=== PATIENT | female | born 1960 | race Caucasian/White ===

== ENCOUNTER 2022-07-17 13:09 | Outpatient (CLI) | payer OTHER, SELFPAY ==
--- NOTE | 2022-07-17 13:40 | CRLHL7_ITS ---
For Patients: As a result of the Cures Act, medical imaging exams and procedure reports are released immediately into your electronic medical record. You may view this report before your referring provider. If you have questions, please contact your health care provider. BILATERAL SCREENING MAMMOGRAM WITH COMPUTER-AIDED DETECTION AND TOMOSYNTHESIS TECHNIQUE: CC and MLO views were obtained. These mammographic images have been obtained using full-field digital technique. These mammographic images were interpreted with the benefit of computer-aided detection. Breast Tomosynthesis was used in this interpretation. COMPARISON FILM: 07/12/21, 06/07/20, 08/05/18. FINDINGS: The breasts are extremely dense, which lowers the sensitivity of mammography IMPRESSION: There is no radiographic evidence for malignancy. ASSESSMENT: BI-RADS Category 2: Benign RECOMMENDATION: Routine screening mammogram in 1 year. A lay language report of this examination will be provided to the patient. Curry Gipson M.D. Diagnostic/Nuclear Medicine Radiologist [email or web address] Transcribed: 2:20 pm DW/Dictated by: Curry Gipson MD @ 07/18/2022 8:35:00 AM (Electronically Signed)
== END 2022-07-17 13:10 | disposition home or self-care (01) ==
LOC: MAMMO 13:10
PROVIDERS: PCP Family Medicine; Visit Provider Family Medicine
DX: Z12.31 Encounter for screening mammogram for malignant neoplasm of breast (principal); R92.2 Inconclusive mammogram
CPT/HCPCS: 77063; 77067

== ENCOUNTER 2023-07-30 09:36 | Outpatient (CLI) | payer OTHER, SELFPAY ==
--- NOTE | 2023-07-30 09:45 | CRLHL7_ITS ---
For Patients: As a result of the Century Cures Act, medical imaging exams and procedure reports are released immediately into your electronic medical record. You may view this report before your referring provider. If you have questions, please contact your health care provider. BILATERAL SCREENING MAMMOGRAM WITH COMPUTER-AIDED DETECTION AND TOMOSYNTHESIS TECHNIQUE: CC and MLO views were obtained. These mammographic images have been obtained using full-field digital technique. These mammographic images were interpreted with the benefit of computer-aided detection. Breast Tomosynthesis was used in this interpretation. COMPARISON FILM: 07/17/22, 07/12/21, 06/07/20. FINDINGS: The breasts are heterogeneously dense, which may obscure small masses IMPRESSION: There is no radiographic evidence for malignancy. ASSESSMENT: BI-RADS Category 2: Benign RECOMMENDATION: Routine screening mammogram in 1 year. A lay language report of this examination will be provided to the patient. Lion Molina M.D. Diagnostic Radiologist [email or web address] SHIRLEY/Dictated by: Lion Molina MD @ 07/30/2023 12:32:00 PM (Electronically Signed)
== END 2023-07-30 09:37 | disposition home or self-care (01) ==
PROVIDERS: PCP Family Medicine; Visit Provider Family Medicine
DX: Z12.31 Encounter for screening mammogram for malignant neoplasm of breast (principal); R92.2 Inconclusive mammogram
CPT/HCPCS: 77063; 77067

== ENCOUNTER 2024-06-29 06:06 | Day surgery (SDC) | payer MEDICARE, BC, SELFPAY ==
--- OUTSIDE RECORDS SUMMARY | 2024-06-29 06:11 | XMS_ITS | Clinical Summary ---
Author Organization [facility] Address [address] [place] [id number] Care Team Providers Care Environmental Services Associate Name Role Phone Unavailable Primary Care Provider Unavailabl e Source Comments Patient records contain information from all sites at [facility]. For routine questions regarding patient records, call [phone] during business hours, M-F 8:00 AM - 5:00 PM Central Time. Record requests for emergency care only can be directed to [phone] at any time.[facility] Allergies Active Allergy Reactions Criticality Noted Date Comments Clindamycin Rash 02/17/2007 Nickel Rash 07/03/2016 Medications acebutolol (SECTRAL) 200 mg capsule Take 200 mg by mouth. 9 Active levothyroxine (SYNTHROID, LEVOTHROID) 25 mcg tablet 4 9 Active fluticasone propion-salmete roL 500-50 mcg/dose diskus inhaler Inhale 1 puff as needed. 9 Active omega 2-alw-ezb-fish oil 1,200 (144-216) mg capsule Active multivitamin-Ca -iron-minerals (Multiple Vitamin, Womens) tablet Daily Activ e cholecalciferol , vitamin D3, (cholecalcifero l) 25 mcg (1,000 Unit) tablet Take 2 tablets (50 mcg total) by mouth daily. 180 tablet 3 2 Active HYDROcodone-darwin taminophen (NORCO) 5-325 mg per tabletIndicatio ns:Acute Pain Take 1 tablet by mouth every 4 (four) hours as needed for pain Indication: Acute Pain. 10 tablet 4 Active estradioL (Vivelle-Dot) 0.025 mg/[address] 1 patch on the skin 2 (two) times a week. 24 patch 3 4 Active progesterone (Prometrium) 100 mg capsule Take 1 capsule (100 mg total) by mouth at bedtime. 90 capsule 3 4 Active estradioL (Vivelle-Dot) 0.025 mg/[address] 1 patch on the skin 2 (two) times a week. 24 patch 3 4 06/03/20 24 Discontinu ed(Reorder ) progesterone (PROMETRIUM) 100 mg capsule Take 1 capsule (100 mg total) by mouth at bedtime. 90 capsule 3 4 06/03/20 24 Discontinu ed(Reorder ) Active Problems Problem Noted Date Diagnosed Date Preventive Gynecological Exam 09/22/2020 Overview (08/27/2023): Mammogram is up to date. Will plan to repeat Pap smear next year. Colonoscopy is up to date. Calcium intake is adequate. Discussed the importance of weight bearing exercises for bone health. Otherwise follows up for preventative services with primary care. Status Post Menopausal 08/07/2018 Overview (08/27/2023): With symptomatic when last tried off medication. Dropping dose to 0.025 transdermal estradiol change twice weekly and 100 mg of Prometrium daily. Samples of Uber lube for vaginal dryness given. Asthma NOS 06/08/2011 Overview (11/13/2016): Asthma, Unspecified Resolved Problems Problem Noted Date Diagnosed Date Resolved Date Bleeding Postmenopausal 08/07/2018 03/0 10/2023 Encounters Date Type Department Care Team Description 06/03/2024 Refill Department of Obstetrics and Gynecology in [place], [place] [address] [id number] Sandro Hood Jr., M.D. Med Refill from Last 3 Months Immunizations Name Administration Dates Next Due HepA Adult 08/03/2005 Influenza, Unspecified 04/07/2011 SARS-COV-2 (COVID-19) - PFIZ ER (Discontinued)(12 years or older) 07/05/2020,06/15/2020 SARS-COV-2 (COVID-19) - PFIZ ER BIVALENT TS(Discontinued)(12 YEARS OR OLDER) 03/31/2022 Tdap 12/06/2008 YF 08/03/2005 Family History Medical History Relation Name Comments Testicular cancer Brother Heart attack Father Coronary artery disease Mother Hypertension Mother Brain cancer Sister Relation Name Status Comments Brother Father Mother Sister Social History Tobacco Use Types Packs/Day Years Used Date Smoking Tobacco: Never Smokeless Tobacco: Never Tobacco Cessation:Counseling Given: Not Answered Humiliation, Afraid, Rape, and Kick questionnair e Answer Date Recorded Within the last year, have y ou been afraid of your partner or ex-partner? No 09/26/2021 Within the last year, have y ou been humiliated or emotionally abused in other ways by your partner or ex-partner? No Within the last year, have y ou been kicked, hit, slapped, or otherwise physically hurt by your partner or ex-partner? No 09/26/2021 Within the last year, have y ou been raped or forced to have any kind of sexual activity by your partner or ex-partner? No 09/26/2021 Social Connection and Isolat ion Panel [NHANES] Answer Date Recorded In a typical week, how many times do you talk on the phone with family, friends, or neighbors? More than three times a week 09/26/2021 How often do you get togethe r with friends or relatives? More than three times a week 09/26/2021 How often do you attend chur ch or hindu services? More than 4 times per year 09/26/2021 Do you belong to any clubs o r organizations such as pentecostalism groups, unions, fraternal or athletic groups, or school groups? Yes 09/26/2021 How often do you attend meet ings of the clubs or organizations you belong to? Never 09/26/2021 Are you , , di vorced, , never , or living with a partner? 09/26/2021 AUDIT-C Answer Date Recorded Q1: How often do you have a drink containing alcohol? 4 or more times a week 09/26/2021 Q2: How many drinks containi ng alcohol do you have on a typical day when you are drinking? 1 or 2 Q3: How often do you have si x or more drinks on one occasion? Never 09/26/2021 Overall Financial Resource Strain (CARDIA) Answe r Date Recorded How hard is it for you to pa y for the very basics like food, housing, medical care, and heating? Not hard at all 09/26/2021 PHQ-2 Answer Date Recorded PHQ-2 Score 0 08/27/2023 [facility] - Occupational Stress Questionnaire Answer Date Recorded Do you feel stress - tense, restless, nervous, or anxious, or unable to sleep at night because your mind is troubled all the time - these days? Only a little 09/26/2021 Exercise Vital Sign Answer Date Recorde d On average, how many days pe r week do you engage in moderate to strenuous exercise (like a brisk walk)? 5 days 09/26/2021 On average, how many minutes do you engage in exercise at this level? 60 min 09/26/2021 Hunger Vital Sign Answer Date Recorded Within the past 12 months, y ou worried that your food would run out before you got the money to buy more. Never true 09/27/19 22 Within the past 12 months, t he food you bought just didn't last and you didn't have money to get more. Never true 09/26/2021 PRAPARE - Transportation Answer Date Re corded In the past 12 months, has l ack of transportation kept you from medical appointments or from getting medications? No 10/2021 In the past 12 months, has l ack of transportation kept you from meetings, work, or from getting things needed for daily living? No 09/26/2021 Housing Stability Vital Sign Answer Juni e Recorded In the last 12 months, was t here a time when you were not able to pay the mortgage or rent on time? No 09/26/2021 In the last 12 months, how many places have you lived? 1 09/26/2021 In the last 12 months, was t here a time when you did not have a steady place to sleep or slept in a custodial (including now)? No 09/26/2021 Nutrition Answer Date Recorded Nutrition: EVOO Fat Source Yes 09/26 On average, how many serving s of fruits and vegetables do you eat per day (serving size is equal to 1 cup or approximately the size of a tennis ball)? 4-5 09/26/2021 Dental Answer Date Recorded Dental: Regular Dentist Yes 09/27/19 Employment Answer Date Recorded Employment status Retired 09/26/2021 Education Answer Date Recorded What is the highest level of school you have completed or the highest degree you have received? 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 Gender Identity Female 09/26/2021 9:45 AM CDT Sexual Orientation Straight 09/26/2021 9: 45 AM CDT Last Filed Vital Signs Vital Sign Reading Time Taken Comments Blood Pressure 117/73 08/27/2023 1:47 PM LINK FABRIC MACHINE OPERATOR Pulse 67 08/27/2023 1:47 PM LINK FABRIC MACHINE OPERATOR Temperature - - Respiratory Rate 18 09/22/2020 8:54 AM CDT Oxygen Saturation - - Inhaled Oxygen Concentration - - Weight 56.1 kg (123 lb 10.9 oz) 08/27/2023 1:47 PM LINK FABRIC MACHINE OPERATOR Height 160 cm (5' 2.99) 08/27/2023 1:47 PM LINK FABRIC MACHINE OPERATOR Body Mass Index 21.91 08/27/2023 1:47 PM LINK FABRIC MACHINE OPERATOR Plan of Treatment Health Maintenance Due Date Last Done Comments CT Colonography 1960 Cologuard 1960 FIT 1960 HIV Screening 1960 Hepatitis C Screening 1960 Hepatitis A Vaccines (2 of 2 - Risk 2-dose series) 01/31/2006 08/03/2005 Mammogram 08/05/2019 08/05/2018 (Perf ormed elsewhere), 08/19/2012 (Performed elsewhere) Fall Risk Screen (Annual) 11/01/2023 COVID-19 Vaccine ( season) 2024 04/10/2023, 03/31/2022, 11/01/2021, Additional history exists Influenza Vaccine (#1) 2024 , 03/31/2022, 03/21/2021, Additional history exists Thyroid Stimulating Hormone (TSH) test for thyroid function 02/05/2025 02/06/2024, 11/27/2023, 08/28/2023, Additional history exists Cervical/Vaginal Cancer Screening 09/27/2026 09/27/2021, 09/27/2021, 08/07/2018, Additional history exists Fasting Glucose for Diabetes Screening 02/05/2027 02/06/2024, 08/28/2023, 07/25/2022, Additional history exists Colonoscopy 07/15/2030 07/15/2020, 04/03/2010 Colorectal Cancer Screening 07/15/2030 DTaP,Tdap,and Td Vaccines (5 - Td or Tdap) 07/24/2032 07/24/2022, 03/17/2012, 10/04/2009, Additional history exists Zoster Vaccines Completed 12/18/2019, 08/26/2019 Pneumococcal vaccine (50+ years) Completed 07/20/2022 Depression Screening (Annual PHQ-2) Completed 08/27/2023 IPV Vaccines Aged Out No longer eligi ble based on patient's age to complete this topic Procedures Procedure Name Priority Date/Time Associated Diagnosis Comments HPV WITH GENOTYPING, PCR, THINPREP Routine 09/27/2021 9:52 AM CDT from Last 3 Months or Most Recently Relevant to Health Maintenance Results * HPV with Genotyping, PCR, ThinPrep (09/27/2021 9:52 AM CDT) HPV with Genotyping, ThinPrep, PCR Negative Negative 09/28/2021 3:45 PM CDT MKTO Comment: Negative for high risk HPV by nucleic acid amplification. The following high risk HPV types were not detected: 16, 18, 31, 33, 35, 39, 45, 51, 52, 56, 58, 59, 66, and 68 Varies 09/27/2021 9:52 AM CDT 09/28/2021 8:34 AM CDT us Sandro Hood Jr., M.D. LAB MICROBIOLOGY - GEN ERAL ORDERABLES Final Result [facility] [address] [place] [address], [facility] MKTO [facility] [place] [address] [place] [address] from Last 3 Months or Most Recently Relevant to Health Maintenance [place] [id number]
--- OUTSIDE RECORDS SUMMARY | 2024-06-29 06:11 | XMS_ITS | Referral Summary ---
Author Organization [facility] Address [address] [place] [address] Care Team Providers Care Delivery Truck Driver Heavy Name Role Phone Unavailable Primary Care Provider Unavailabl e Source Comments Patient records contain information from all sites at [facility]. For routine questions regarding patient records, call [phone] during business hours, M-F 8:00 AM - 5:00 PM Central Time. Record requests for emergency care only can be directed to [phone] at any time.[facility] Encounters Date Type Department Care Team Description 06/03/2024 Refill Department of Obstetrics and Gynecology in [place], [place] [address] [place] [phone] Sandro Hood Jr., M.D. Med Refill from Last 3 Months Allergies Active Allergy Reactions Criticality Noted Date Comments Clindamycin Rash 02/17/2007 Nickel Rash 07/03/2016 Medications acebutolol (SECTRAL) 200 mg capsule Take 200 mg by mouth. 9 Active levothyroxine (SYNTHROID, LEVOTHROID) 25 mcg tablet 4 9 Active fluticasone propion-salmete roL 500-50 mcg/dose diskus inhaler Inhale 1 puff as needed. 9 Active omega 9-wex-gib-fish oil 1,200 (144-216) mg capsule Active multivitamin-Ca [...] Resolved Date Bleeding Postmenopausal 08/07/2018 03/0 10/2023 Immunizations Name Administration Dates Next Due HepA Adult 08/03/2005 Influenza, Unspecified 04/07/2011 SARS-COV-2 (COVID-19) - PFIZ ER (Discontinued)(12 years or older) 07/05/2020,06/15/2020 SARS-COV-2 (COVID-19) - PFIZ ER BIVALENT TS(Discontinued)(12 YEARS OR OLDER) 03/31/2022 Tdap 12/06/2008 YF 08/03/2005 Social History Tobacco Use Types Packs/Day Years [...] 09/26/2021 How often do you attend chur or sabianism services? More than 4 times per year 09/26/2021 Do you belong to any clubs o r organizations such as judaism groups, unions, fraternal or athletic groups, or [...] Answer Date Recorded PHQ-2 Score 0 08/27/2023 [facility] - Occupational Stress [...] place to sleep or slept in a penitentiary (including now)? 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 Gender Identity Female 09/26/2021 9:45 AM CDT Sexual Orientation Straight 09/26/2021 9: 45 AM CDT Last Filed Vital Signs Vital Sign Reading Time Taken Comments Blood Pressure 117/73 08/27/2023 1:47 PM TREASURY DIRECTOR Pulse 67 08/27/2023 1:47 PM TREASURY DIRECTOR Temperature - - Respiratory Rate 18 09/22/2020 8:54 AM CDT Oxygen Saturation - - Inhaled Oxygen Concentration - - Weight 56.1 kg (123 lb 10.9 oz) 08/27/2023 1:47 PM TREASURY DIRECTOR Height 160 cm (5' 2.99) 08/27/2023 1:47 PM TREASURY DIRECTOR Body Mass Index 21.91 08/27/2023 1:47 PM TREASURY DIRECTOR Plan of Treatment Not on file Procedures Procedure Name Priority Date/Time Associated Diagnosis [...] 9:52 AM CDT 09/28/2021 8:34 AM CDT Sandro Hood Jr., M.D. LAB MICROBIOLOGY - GEN ERAL ORDERABLES Final Result [facility] [address] [place] [address], [facility] MKTO [facility] in [place] [address] [place] [address] from Last 3 Months or Most Recently Relevant to Health Maintenance Insurance MEDICA
--- OUTSIDE RECORDS SUMMARY | 2024-06-29 06:11 | XMS_ITS | Clinical Summary ---
Author Organization [facility] Address [place], [place] [address] Care Team Providers Care Yarn Texture Machine Operator Name Role Phone Kamille Cespedes MD Primary Care Prov ider Allergies Active Allergy Reactions Criticality Noted Date Comments Clindamycin Rash 02/17/2007 Nickel Contact Dermatitis 07/03/2016 Medications multivitamin (MVI) tablet Take 1 tablet by mouth once daily. 0 5 Active cholecalciferol, Vitamin D3, (Vitamin D-3) 2,000 unit tablet Take 1 Tablet (2,000 units) by mouth once daily. 3 Active estradiol 0.025 mg/24 hr (CLIMARA) 0.025 mg/24 hr patch Apply 1 Patch on dry, clean, hairless skin once weekly. 4 Active progesterone micronized (PROMETRIUM) 100 mg capsule Take 1 Capsule (100 mg) by mouth. This product contains peanut oil. Please verify patient allergies. 4 Active Advair Diskus 500-50 mcg/dose diskus inhalerIndicatio ns:Asthma, unspecified asthma severity, unspecified whether complicated, unspecified whether persistent Inhale 1 Puff by mouth two times daily. NEEDED HOLD until patient calls 1 Each 11 4 Active bisoprolol (ZEBETA) 5 mg tabletIndication s:SVT (supraventricula r tachycardia) (HC) Take 0.5 Tablets (2.5 mg) by mouth once daily. 30 Tablet 3 4 Active levothyroxine (SYNTHROID) 50 mcg tabletIndication s:Hypothyroidism , unspecified type Take 1 Tablet (50 mcg) by mouth once daily. Dose increase 11/27/2023 90 Tablet 1 4 Active oxyCODONE (ROXICODONE) 5 mg immediate release tabletIndication s:Tailor's bunionette, left Take 1-2 Tablets (5-10 mg) by mouth every 4 hours if needed for Pain. 20 Tablet 5 Active Active Problems Problem Noted Date Diagnosed Date Screening for osteoporosis 07/30/2022 Overview (07/30/2022): IMPRESSION: Normal bone density. Repeat scan recommended in 3-5 years. Hypothyroidism 04/22/2014 Hyperplastic colon polyp 04/06/2010 Overview (04/06/2010): Colonoscopy 03/2010 Polyp repeat in 10 years Symptomatic menopausal or female climacteric sta anitha 05/08/2007 Unspecified asthma(493.90) 05/08/2007 Mitral valve disorders 05/08/2007 Allergic rhinitis, cause unspecified 05/08/2007 Migraines Resolved Problems Problem Noted Date Diagnosed Date Resolved Date Adjustment disorder with anxiety 03/31/2010 06/15/2021 Encounters Date Type Department Care Team Description 06/15/2024 7:15 AM BONDERIZER OPERATOR Ancillary Procedure [facility] [address] [place] [address] 06/14/2024 Travel 06/02/2024 7:00 AM BONDERIZER OPERATOR Preop Visit [facility] [address] [place] [place] [address] Kamille Cespedes MD Preoperative Exam (DOS 06/29/24 /Left foot zander booker /Dr Mckinney [facility]/) 06/01/2024 Travel 04/16/2024 9:15 AM CDT Office Visit [facility] [place] [address] [facility] [place] [phone] Ney Mckinney, DPM Follow Up (Left foot, tailor's bunion) 04/16/2024 Travel from Last 3 Months Immunizations Name Administration Dates Next Due AMB INFLUENZA, IIV4 (AGE=>6M OS) MDV (Flu Clinic Only) 03/27/2018 COVID-19 vaccine ([employer]-Bio NTech 30mcg/0.3mL) 12YO+ BIVALENT PF, MDV 03/31/2022 COVID-19 vaccine (Pfizer-Bio NTech 30mcg/0.3mL) PF, MDV 07/05/2020,06/15/2020 Hepatitis A (Adult) 08/03/2005 Influenza A (H1N1), Inactiva jay (Age >=3 Years) 05/26/2009 Influenza Intradermal PF 18-64 yrs 04/21/2014 Influenza RIV4 (Age 18+ Year s) PRESERV FREE 03/25/2019 Influenza Virus, Unspecified 04/07/2011 Influenza, IIV3 (Age 6-35 mos) 8,04/07/2013,03/17/2012,2010,03/27/2010 Influenza, IIV4 04/10/2023, 0,04/10/2017,2015,03/30/2015 Influenza, IIV4 (=>6mos) MDV 03/21/2021 Influenza,CCIIV4 PRESERV FREE 03/31/2022 Pneumococcal Conj 20-valent (Prevnar 20) 07/20/2022 Tdap 07/24/2022, 2,10/04/2009,2008 Yellow Fever 08/03/2005 Zoster (Shingrix-RZV, recombinant) 12/18/2019, Family History Medical History Relation Name Comments Cancer Brother 1 testicular Dementia Brother 2 Jeff Sean body Heart Disease Father PR, stents Hypertension Maternal Grandmother Hypertension Mother Heart Disease Paternal Grandfather deceas ed of heart attack Cancer Sister 1 brain malignant Cancer Sister 2 brain non-malig nant tumor Relation Name Status Comments Brother 1 Alive Brother 2 Jeff Alive Father Alive Maternal Grandmother Mother Alive Paternal Grandfather Sister 1 Alive Sister 2 Alive Social History Tobacco Use Types Packs/Day Years Used Date Smoking Tobacco: Never Smokeless Tobacco: Never Tobacco Cessation:Counseling Given: Yes Alcohol Use Standard Drinks/Week Comments Yes 4 (1 standard drink = 0.6 oz pur e alcohol) social [facility] Utilities Answer Date Recorded Do you have trouble paying f or utilities (for example, heat, electricity, water, phone)? Yes 09/01/2023 PHQ-2 Answer Date Recorded PHQ-2 TOTAL SCORE 0 12/17/2023 Social Connections Answer Date Recorded Do you often feel lonely or isolated from those around you? 0 09/01/2023 Financial Resource Strain Answer Date R ecorded Difficulty of Paying Living Expenses 3 09/01/2023 Difficulty of Paying Living Expenses Not on file 09/01/2023 Food Insecurity Answer Date Recorded Do you worry your food will run out before you are able to buy more? 1 09/01/2023 Transportation Needs Answer Date Record ed Does lack of transportation keep you from medica l appointments? 1 09/01/2023 Does lack of transportation keep you from work, meetings or getting things that you need? 1 09/01/2023 Housing Stability Answer Date Recorded What is your housing situation today? 1 09/01/2023 Comments No Sex and Gender Information Value Date Recorded Sex Assigned at Not on file Legal Sex Female 5:23 AM BONDERIZER OPERATOR Gender Identity Not on file Sexual Orientation Not on file Obstetrics History Last Filed Vital Signs Vital Sign Reading Time Taken Comments Blood Pressure 110/68 06/02/2024 7:02 AM BONDERIZER OPERATOR Pulse 60 06/02/2024 7:02 AM BONDERIZER OPERATOR Temperature 36.7 C (98 F) 06/02/2024 7:02 AM BONDERIZER OPERATOR Respiratory Rate 18 07/19/2020 11:49 AM BONDERIZER OPERATOR Oxygen Saturation 99% 06/02/2024 7:02 AM BONDERIZER OPERATOR Inhaled Oxygen Concentration - - Weight 57.2 kg (126 lb 3.2 oz) 06/02/2024 7:02 A M BONDERIZER OPERATOR Height 160.5 cm (5' 3.19) 06/02/2024 7:02 AM CS T Body Mass Index 22.22 06/02/2024 7:02 AM BONDERIZER OPERATOR Plan of Treatment Upcoming Encounters Date Type Department Care Team (Late st Contact Info) Description 06/29/2024 7:00 AM BONDERIZER OPERATOR Office Visit [facility] [address] [place] [phone] Ney Mckinney DPM [address] [place] [address] 07/01/2024 8:45 AM BONDERIZER OPERATOR Office Visit [facility] [address] [place] [address] Ney Mckinney DPM [address] [place] [address] 07/02/2024 11:05 AM BONDERIZER OPERATOR Office Visit [facility] [address] [place] [address] Kamille Cespedes MD [address] [place] [address] 07/08/2024 8:35 AM BONDERIZER OPERATOR Procedure Only [facility] [address] [place] [address] Tu La MD [address] [place] [address] 07/14/2024 1:15 PM BONDERIZER OPERATOR Office Visit [facility] [address] [place] [address] Ney Mckinney DPM [address] [place] [address] Health Maintenance Due Date Last Done Comments Pap test for age 21-65 11/06/2015 11/05/2012 RSV vaccine for adults or (1 - Risk 60-74 years 1-dose series) 2018 DEXA/DXA scan for age 65+ 11/01/20232022, 07/24/2022, 08/21/2012, Additional history exists Medicare Wellness for age 65+ 11/01/2023 Influenza for age 65+ 02/23/2024 04/10/2023 , 03/31/2022, 03/21/2021, Additional history exists Mammogram for age 45-75 07/30/2024 07/30/19 24, 07/12/2021, 06/07/2020, Additional history exists Depression screening for age 12+ 12/16/2024 12/17/2023, 07/25/2022, 07/24/2022, Additional history exists BMI (ht and wt on same day) for age 18+ 06/02/2025 06/02/2024, 07/24/2022, 06/15/2021, Additional history exists Lipids for age 45-75 08/27/2028 08/28/2023, 07/25/2022, 06/15/2021, Additional history exists Colonoscopy through age 75 07/15/203007/15, 07/15/2020, 04/06/2010, Additional history exists Tetanus booster 07/24/2032 07/24/2022, 02/23, 10/04/2009, Additional history exists HIV for age 15-65 Completed 06/24/1999 (Co mpleted outside of [place]) Hepatitis C screening for ag e 18-79 Completed 06/24/1999 (Completed outsid e of [place]) Zoster (shingles) series for age 50+ Completed 12/18/2019, 08/26/2019 Pneumococcal series for age 50+ Completed 3 Tdap Completed 07/24/2022, 02/23, 10/04/2009, Additional history exists COVID-19 vaccine series Completed 04/27/20, 04/10/2023, 03/31/2022, Additional history exists Procedures Procedure Name Priority Date/Time Associated Diagnosis Comments MR HIP RIGHT WO Routine 06/15/2024 7:18 AM BONDERIZER OPERATOR Tear of right gluteus medius tendon, sequela Buttock pain LIPID PANEL W REFLEX MEASURED LDL Routine 08/28/2023 8:15 AM BONDERIZER OPERATOR Screening for lipoid disorders SCAN-MAMMOGRAPHY REPORT 07/30/2023 12:00 AM BONDERIZER OPERATOR XR DXA BONE DENSITY 2 SITES AXIAL Routine 07/24/2022 2:38 PM BONDERIZER OPERATOR Screening for osteoporosis COLONOSCOPY 07/15/2020 11:09 AM BONDERIZER OPERATOR from Last 3 Months or Most Recently Relevant to Health Maintenance Results * MR HIP RIGHT WO (06/15/2024 7:18 AM BONDERIZER OPERATOR) Anatomical Region Laterality Modality HIPR Magnetic Resonan ce 06/15/2024 11:5 7 AM BONDERIZER OPERATOR Impressions 06/15/2024 11:57 AM BONDERIZER OPERATOR 1. No meaningful change. Tendinopathy and low-grade partial tearing right gluteus medius insertion. Scant trochanteric bursitis. Mild degenerative chondromalacia. 2. Levoscoliosis centered above the field of view. Dictated by Tu Barone MD @ 06/15/2024 11:57:18 AM (Electronically Signed) Narrative 06/15/2024 11:57 AM BONDERIZER OPERATOR For Patients: As a result of the Cures Act, medical imaging exams and procedure reports are released immediately into your electronic medical record. You may view this report before your referring provider. If you have questions, please contact your health care provider. EXAM: MRI OF THE RIGHT HIP, WITHOUT CONTRAST CLINICAL INDICATION: Hip pain. Assess gluteal tendons. PRIOR SURGERY: None. COMPARISON PLAIN FILMS: 17 December 2023 COMPARISON CROSS-SECTIONAL IMAGING STUDIES: MRI 03 February 2024 TECHNICAL: Axial, sagittal and coronal PDFS small field of view images of the hip. Coronal and axial T1 and PDFS large field of view images of the entire pelvis. 1.5 Ana MR scanner. FINDINGS: RIGHT HIP: Effusion: No significant joint effusion, synovial hypertrophy or synovitis. Articular Cartilage/Surfaces: Mildly heterogeneous T2 signal diffusely with shallow uniform grade 2 thinning. No secondary degenerative finding of significance. No significant change from comparison. Labrum: Normal. Joint Bodies: None seen. Proximal Femoral Morphology: No significant osseous bump. Femoral head-neck offset is within normal limits. Acetabular Morphology: No focal or global retroversion. No significant overcoverage. AVN: Not present. LEFT HIP: On the large field of view images of the entire pelvis, the contralateral hip joint is maintained. OSSEOUS STRUCTURES: Scoliosis to the left centered above the field of view. Mild disc desiccation and height loss L3-4. MUSCULOTENDINOUS STRUCTURES AND BURSAE: Mild edema surrounds the intact gluteus medius right hip. Intact gluteus minimus with small amount of fluid under the distal tendon and a small amount of fluid in the trochanteric bursa. Ischial femoral space is clear. Hamstring is intact. Left hamstring is intact. No fluid or edema at the left greater trochanter. INTRAPELVIC CONTENTS: No mass, fluid collection or adenopathy. No inguinal hernia. NEUROVASCULAR STRUCTURES: No abnormality involving the visualized sacral nerve roots or proximal femoral or proximal sciatic nerves. No aneurysmal dilation of the visualized arterial circulation. Procedure Note Tu Barone MD - 06/15/2024 For Patients: As a result of the Cures Act, medical imagingexams and procedure reports are released immediately into your electronicmedical record. You may view this report before your referring provider.If you have questions, please contact your health care provider. EXAM: MRI OF THE RIGHT HIP, WITHOUT CONTRAST CLINICAL INDICATION: Hip pain. Assess gluteal tendons. PRIOR SURGERY: None. COMPARISON PLAIN FILMS: 17 December 2023 COMPARISON CROSS-SECTIONAL IMAGING STUDIES: MRI 03 February 2024 TECHNICAL: Axial, sagittal and coronal PDFS small field of view images of the hip.Coronal and axial T1 and PDFS large field of view images of the entirepelvis. 1.5 Ana MR scanner. FINDINGS: RIGHT HIP: Effusion: No significant joint effusion, synovial hypertrophy orsynovitis. Articular Cartilage/Surfaces: Mildly heterogeneous T2 signal diffuselywith shallow uniform grade 2 thinning. No secondary degenerative findingof significance. No significant change from comparison. Labrum: Normal. Joint Bodies: None seen. Proximal Femoral Morphology: No significant osseous bump. Femoralhead-neck offset is within normal limits. Acetabular Morphology: No focal or global retroversion. No significantovercoverage. AVN: Not present. LEFT HIP: On the large field of view images of the entire pelvis, the contralateralhip joint is maintained. OSSEOUS STRUCTURES: Scoliosis to the left centered above the field of view. Mild discdesiccation and height loss L3-4. MUSCULOTENDINOUS STRUCTURES AND BURSAE: Mild edema surrounds the intact gluteus medius right hip. Intact gluteusminimus with small amount of fluid under the distal tendon and a smallamount of fluid in the trochanteric bursa. Ischial femoral space is clear.Hamstring is intact. Left hamstring is intact. No fluid or edema at theleft greater trochanter. INTRAPELVIC CONTENTS: No mass, fluid collection or adenopathy. No inguinal hernia. NEUROVASCULAR STRUCTURES: No abnormality involving the visualized sacral nerve roots or proximalfemoral or proximal sciatic nerves. No aneurysmal dilation of thevisualized arterial circulation. IMPRESSION: 1. No meaningful change. Tendinopathy and low-grade partial tearing rightgluteus medius insertion. Scant trochanteric bursitis. Mild degenerativechondromalacia. 2. Levoscoliosis centered above the field of view. Dictated by Tu Barone MD @ 06/15/2024 11:57:18 AM (Electronically Signed) us Carlos Moore MD MR Final Res ult * LIPID PANEL W REFLEX MEASURED LDL (08/28/2023 8:15 AM BONDERIZER OPERATOR) CHOLESTEROL,TOTAL 189 100 - 199 mg/dL 08/28/2023 2:32 PM BONDERIZER OPERATOR [facility] Comment: Cholesterol, Total Reference Ranges Desirable <200 mg/dL Borderline 200-239 mg/dL High >=240 mg/dL TRIGLYCERIDES 85 <150 mg/dL 08/28/2023 2:32 PM BONDERIZER OPERATOR [facility] HDL CHOLESTEROL 58 >40 mg/dL 2:32 PM BONDERIZER OPERATOR [facility] NON-HDL CHOLESTEROL 131 <145 mg/dl 08/28/2023 2:32 PM BONDERIZER OPERATOR [facility] CHOL/HDL RATIO 3.26 <4.50 08/28/2023 2:32 PM BONDERIZER OPERATOR [facility] LDL CHOLESTEROL 114 <=130 mg/dL 08/28/2023 2:32 PM BONDERIZER OPERATOR [facility] VLDL CHOLESTEROL 17 <=30 mg/dL 08/28/2023 2:32 PM BONDERIZER OPERATOR [facility] PROVIDER ORDERED STATUS RANDOM 08/28/2023 2:32 PM BONDERIZER OPERATOR [facility] Blood BLOOD SPECIMEN / Unknown Venipuncture / Unknown 08/28/2023 8:15 AM BONDERIZER OPERATOR 08/28/2023 8:15 AM BONDERIZER OPERATOR us Kamille Cespedes MD CHEMISTRY Fi nal Result [facility] [address] [place] [address], * SCAN-MAMMOGRAPHY REPORT (07/30/2023 12:00 AM BONDERIZER OPERATOR) Anatomical Region Laterality Modality Other us Scanner OTHER Final Result * XR DXA BONE DENSITY 2 SITES AXIAL (07/24/2022 2:38 PM BONDERIZER OPERATOR) Anatomical Region Laterality Modality Spine, HIPS, HIPL, HIPR Other Impressions 07/30/2022 8:09 AM BONDERIZER OPERATOR Normal bone density. RECOMMENDATIONS: The National Osteoporosis Foundation recommends pharmacologic treatment for patients with T-scores of -2.5 or less, patients with prior history of fragility fractures, or patients with 10-year probability of greater than 3% at hips or greater than 20% of suffering major osteoporotic fractures. Recommend continued optimization of calcium and vitamin D intake through dietary means and/or supplementation and regular exercise. Repeat scan recommended in 3-5 years. Sadia Saavedra PA-C [facility] 07/30/2022 Narrative 07/30/2022 8:09 AM BONDERIZER OPERATOR For Patients: Results are automatically released to your [facility] account once available, in compliance with federal regulations. This means that you may see your results before your provider has had a chance to review them. Please allow 2-3 business days for your provider to comment on the results. XR DXA Bone Mineral Density (BMD) EXAM LOCATION: [facility] [address] [facility] [address] PATIENT NAME: Ronit Beauchamp DATE OF : 1960 EXAM DATE: 07/24/2022 REQUESTING PROVIDER: Kamille Cespedes MD GENDER AT : female HEIGHT: 5' 3.19 (07/24/2022) WEIGHT: 125 lb 12.8 oz (07/24/2022) MENOPAUSAL STATUS: Postmenopausal RACE/ETHNICITY: White RISK FACTORS: Height Loss (2 inches or more) and White Race CURRENT MEDICATION FOR BONE LOSS: NONE INDICATION: Follow-up of existing osteoporosis COMPARISON DATE(S): None DXA scans are compared to prior studies for a patient only when the two (or more) studies were performed on the same scanner. It is not possible to compare data generated on one scanner to data from another because there are not standards in DXA equipment. This applies even if the two scanners are made by the same site foreman. PROCEDURE: Dual-energy x-ray absorptiometry performed with routine technique. Reporting is completed in the form of a T-score. The T-score represents the standard deviation from peak bone mass based on young healthy adult. A Z-score is used for diagnosis in premenopausal women, and for men under the age of 50. FINDINGS: RESULT LUMBAR SPINE L1 - L4 BMD: 1.405 g/cm2 T-Score: + 1.7 Z-Score: + 3.5 Change from prior: None RESULTS FEMUR Left femoral neck BMD: 1.056 g/cm2 T-Score: + 0.1 Z-Score: + 1.7 Change from prior: None Right femoral neck BMD: 1.036 g/cm2 T-Score: + 0.0 Z-Score: + 1.6 Change from prior: None Left hip BMD: 1.181 g/cm2 T-Score: + 1.4 Z-Score: + 2.7 Change from prior: None Right hip BMD: 1.170 g/cm2 T-Score: + 1.3 Z-Score: + 2.6 Change from prior: None WHO criteria: Normal: T-score at or above -1 SD Osteopenia: T-score between -1.1 and -2.4 SD Osteoporosis: T-score at or below -2.5 SD us Kamille Cespedes MD DEXA Fi nal Result * COLONOSCOPY (07/15/2020 11:09 AM BONDERIZER OPERATOR) 07/15/2020 11:0 9 AM BONDERIZER OPERATOR Narrative Transcriptions Dominic Constantino MD - 07/15/2020 12:02 PM CST Patient Name: Ronit Beauchamp Procedure Date: 07/15/2020 Gender: Female Date of : 1960 Admit Type: Outpatient Procedure: Colonoscopy Proceduralist: Dominic Constantino MD , Lelo Lira RN(Nurse) Indications/Pre-Op Diagnosis: Screening for colorectal malignant neoplasm, Last colonoscopy: March 2010 Medications: Fentanyl 100 micrograms IV, Midazolam 6 mgIV, The level of sedation administered wasmoderate Procedure Description: The patient had risks, benefits and alternatives explained to andgave informed consent. The patient had a stable cardiopulmonary status and judged an adequate candidate for conscious sedation. The [id number] was passed through the anus and advanced tothe cecum, identified by appendiceal orifice and ileocecal valve. The colonoscopy was performed without difficulty. The patient toleratedthe procedure well. The quality of the bowel preparation was good. The ileocecal valve, appendiceal orifice, and rectum were photographed. Complications: No immediate complications. Estimated Blood Loss & Specimen: Estimated blood loss: none. Specimen collected - None Findings: The perianal and digital rectal examinations were normal. The entire examined colon appeared normal on direct and retroflexion views. Impressions/Post-Op Diagnosis: - The entire examined colon is normal on direct and retroflexionviews. - No specimens collected. Recommendation: - Patient has a contact number available for emergencies. The signsand symptoms of potential delayed complications were discussed with the patient. Return to normal activities tomorrow. Written discharge instructions were provided to the patient. - Resume previous diet. - Continue present medications. - Repeat colonoscopy in 10 years for screening purposes. Moderate Sedation: Moderate (conscious) sedation was administered by the endoscopy nurse and supervised by the endoscopist. The following parameters were monitored: oxygen saturation, heart rate, respiratory rate, blood pressure, adequacy of pulmonary ventilation and reponse to care. Please refer to the patient's medical record flowsheets and nursing notes for moderate sedation details. Total physician intraservice time was 26 minutes. Dominic Constantino MD 07/15/2020 12:02:49 PM This report has been signed electronically. Note Initiated On: 07/15/2020 11:09 AM Procedure Code(s): --- Professional --- 58765, Colonoscopy, flexible; diagnostic, including collection of specimen(s) bybrushing or washing, when performed (separateprocedure) Diagnosis Code(s): --- Professional --- Z12.11, Encounter for screening formalignant neoplasm of colon CPT copyright 2019 [employer] [place] [employer]. All rights reserved. The codes documented in this report are preliminary and upon search marketing coordinator reviewmay be revised to meet current compliance requirements. Scope In: 11:32:11 AM Scope Withdrawal Time 0 hours 7 minutes 8 seconds Scope Out: 11:56:01 AM Dominic Constantino MD PROCEDURE ORD Final Res ult from Last 3 Months or Most Recently Relevant to Health Maintenance Insurance [employer] BLUE MR PB ONLY Advance Directives * Full Code (Latest Code Status on File) Date Activated Date Inactivated Comments 07/03/2016 6:43 AM 07/03/2016 12:26 PM Care Teams Yarn Texture Machine Operator Relationship Specialty Start Date End Date Kamille Cespedes MD [address] [place] [address] PCP - General Family Practice 08/22/12
--- OUTSIDE RECORDS SUMMARY | 2024-06-29 06:11 | XMS_ITS | Continuity of Care Document ---
Author Name [email or web address] Address Unknown Organization Unknown Address Unknown Procedures FILTER APPLIED:Only known Procedures with Onset Date within the last 5 years Procedure Date Procedure Provider Additiona l Information Status SCR MAMMO BI INCL CAD (47523) Completed BREAST TOMOSYNTHESIS BI (01621) Completed Encounters FILTER APPLIED:Only known Encounters with Admission Date within the last 5 years Encounter Location Admission Discharge Billing Code [facility] Bo Cespedes
--- OUTSIDE RECORDS SUMMARY | 2024-06-29 06:12 | XMS_ITS | Encounter Summary ---
Author Organization [facility] Address [address] [place] [address] Care Team Providers Care Rn Trauma Name Role Phone Unavailable Primary Care Provider Unavailabl e Reason for Visit * Reason Onset Date Comments Med Refill 06/03/2024 Encounter Details Date Type Department Care Team (Late st Contact Info) Description 06/03/2024 Refill Department of Obstetrics and Gynecology in [place], [place] [address] [id number] Sandro Hood Jr., M.D. [address] [id number] Med Refill Social History Tobacco Use Types Packs/Day Years Used Date Smoking Tobacco: Never Smokeless Tobacco: Never Humiliation, Afraid, Rape, and Kick questionnair e [...] week 09/26/2021 How often do you attend [facility] or [employer] services? More than 4 times per year 09/26/2021 Do you belong to any clubs o r organizations such as mosque groups, unions, fraternal or athletic groups, or [...] when you are drinking? 1 or 2 2 Q3: How often do you have si x or more drinks on one occasion? Never 09/26/2021 Overall Financial Resource Strain (CARDIA) Answe r Date Recorded How hard is it for you to pa y for the very basics like food, housing, medical care, and heating? Not hard at all 09/26/2021 PHQ-2 Answer Date Recorded PHQ-2 Score 0 08/27/2023 [facility] - Occupational Stress Questionnaire Answer Date [...] money to buy more. Never true 09/27/19 Within the past 12 months, t he [...] place to sleep or slept in a fdc (including now)? 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
--- OUTSIDE RECORDS SUMMARY | 2024-06-29 06:12 | XMS_ITS ---
Author Organization [facility] Address [address] [place] [address] Care Team Providers Care Network Support Engineer Name Role Phone Unavailable Unavailable Unavailable Surgery Details Not on file Complications Check Surgery Details section. Procedure Estimated Blood Loss Check Surgery Details section. Procedure Findings Check Surgery Details section. Procedure Specimens Taken Check Surgery Details section.
[2024-06-29 06:21] VITALS: BMI 22.2
[2024-06-29 06:31] VITALS: BP 149/90; PULSE 63; RESP 16; TEMP 36.8; O2SAT 98
[2024-06-29] MEDS: 0.9 % SODIUM CHLORIDE 500 ML 500 ML 100 ML IV ×2 (06:56→08:11)
[2024-06-29] MEDS: SODIUM CHLORIDE 0.9 % (FLUSH) 10 ML SYRINGE IVF (06:56)
--- NOTE | 2024-06-29 07:15 | CRLHL7_ITS ---
For Patients: As a result of the Cures Act, medical imaging exams and procedure reports are released immediately into your electronic medical record. You may view this report before your referring provider. If you have questions, please contact your health care provider. Indication: Tailor`s bunionectomy Technique: Two fluoroscopic images of the left forefoot. Fluoroscopic time 5.4 seconds. IMPRESSION: Fluoroscopic guidance for tailor`s bunionectomy. Dictated by Lion Molina MD @ 06/29/2024 9:17:23 AM (Electronically Signed)
[2024-06-29] MEDS: BUPIVACAINE 0.25% 30 ML INJECTION (07:20)
[2024-06-29] MEDS: CEFAZOLIN 1 GM inj IVP (07:25)
[2024-06-29 08:26] VITALS: BP 120/64; PULSE 67; RESP 16; TEMP 36.2; O2SAT 98
[2024-06-29 08:30] VITALS: BP 120/64; PULSE 58; RESP 16; O2SAT 100
--- NOTE | 2024-06-29 08:31 | W.ANESCHARGE ---
Anesthesia Charges Start Date/Time Anesthesia Start Date: 06/29/24 Anesthesia Start Time: 07:14 Stop Date/Time Anesthesia Stop Date: 06/29/24 Anesthesia Stop Time: 08:30
--- NOTE | 2024-06-29 08:42 | W.PODPROC_ITS ---
Date of Procedure: 06/29/24 Surgeon: Ney Mckinney DPM Pre-op Diagnosis: Tailor's bunion left Post-op Diagnosis: tailor's bunion left Type of Procedure: tailor's bunion correction by osteotomy left Indications: patient is having ongoing pain to tailor's bunion. She has elected to have surgical correction. I reviewed the procedure, recovery, expectation potential complications. These include but not limited to: Poor wound healing, infection, under correction, over correction, nonunion, delayed union, malunion, hardware irritation, nerve injury, deep venous thrombosis, pulmonary embolism, complex regional pain syndrome possible . She understands risks written consent was obtained. Site marked. Procedure Description: Patient brought the operating room placed supine position on operating table that time IV sedation was initiated local anesthetic injected in the left foot. She was prepped and draped in a sterile fashion. Standard time-out protocol followed. Dorsal lateral incision was made over the 5th metatarsal head and distal shaft. The incision was carried down through skin subcutaneous tissues. Linear capsular incision was made in the capsular tissue reflected away from the head of 5th metatarsal. The enlarged condyle was resected with sagittal saw. Osteotomy guide pin was placed in the 5th metatarsal head and a long plantar arm osteotomy performed. Capital fragment was transposed medially and fixated with 2.5 mm cannulated screws x2. Fifth metatarsal head was remodeled with a rotary bur. C-arm images confirmed excellent correction with hardware in place. Wound was thoroughly irrigated normal sterile saline. Capsular tissues repaired with 4-0 Vicryl. Subcutaneous tissues reapproximated 4-0 Monocryl skin closed with 4-0 Prolene. Sterile dressing was applied. Tourniquet was released and normal capillary fill time returned all digits. She was transferred from OR to Same- day surgery vital signs stable and vascular status intact. she will be discharged per same-day surgery protocol. Both written and verbal postoperative instructions given. She is given [place] for pain. Anesthesia: MAC and local Hemostasis: ankle Estimated blood loss (mL): 2 Implants: [employer] Fixos 2.5 mm cannulated screws x2 Specimens: none sent Disposition: same day
[2024-06-29 08:45] VITALS: BP 136/73; PULSE 59; RESP 16; O2SAT 100
--- NOTE | 2024-06-29 08:53 | W.ANESCHARGE ---
Anesthesia Charges Start Date/Time Anesthesia Start Date: 06/29/24 Anesthesia Start Time: 07:14 Stop Date/Time Anesthesia Stop Date: 06/29/24 Anesthesia Stop Time: 08:30
[2024-06-29 09:00] VITALS: BP 143/91; PULSE 56; RESP 16; O2SAT 100
--- NOTE | 2024-06-29 09:35 | SUR.PHASEII ---
pt tolerated toast and water. Denies pain in left foot. Dressing c/d/i. Pt placed in surgical boot from previously surgery- Dr. Faye manzanares'd placement of this boot. Wheelchair out car with .
== END 2024-06-29 09:28 | disposition home or self-care (01) ==
PROVIDERS: PCP Family Medicine; Visit Provider Podiatrist
PROC: (CPT 28292; principal; 2024-06-29 07:15)
DX: M21.622 Bunionette of left foot (principal)
CPT/HCPCS: 28308; 01480; 73620; 76000; C1713; J0665; J0690; J1100; J2250; J2405; J2704; J3010; J7030

== ENCOUNTER 2024-10-05 14:16 | Outpatient (CLI) | payer MEDICARE, BC, SELFPAY ==
--- NOTE | 2024-10-05 14:00 | CRLHL7_ITS ---
For Patients: As a result of the Century Cures Act, medical imaging exams and procedure reports are released immediately into your electronic medical record. You may view this report before your referring provider. If you have questions, please contact your health care provider. INDICATION: BILATERAL SCREENING MAMMOGRAM, ASYMPTOMATIC 63 YEAR OLD FEMALE COMPARISON: 07/30/23, 07/17/22, 07/12/21 TECHNIQUE: CC and MLO views were obtained. These mammographic images have been obtained using full-field digital technique. These mammographic images were interpreted with the benefit of computer aided detection and tomosynthesis. BREAST COMPOSITION: The breasts are heterogeneously dense, which may obscure small masses. FINDINGS: No suspicious findings. ASSESSMENT: BI-RADS 2 Benign RECOMMENDATION: Annual screening mammogram. A lay language report of this examination will be provided to the patient. Dictated by: Lion Molina MD @ 10/14/2024 10:01:59 (Electronically Signed)
== END 2024-10-05 14:17 | disposition home or self-care (01) ==
LOC: MAMMO 14:19
PROVIDERS: PCP Family Medicine; Visit Provider Family Medicine
DX: Z12.31 Encounter for screening mammogram for malignant neoplasm of breast (principal); R92.333 Mammographic heterogeneous density, bilateral breasts
CPT/HCPCS: 77063; 77067